=== PATIENT | female | born 1960 | race African-American/Black ===

== ENCOUNTER 2023-03-21 19:41 | Emergency (ER) | payer OTHER, SELFPAY ==
[2023-03-21] VITALS (7 sets, daily range): BP systolic 154–163; BP diastolic 98–100; PULSE 52–73; RESP 15–22; TEMP 36.7; O2SAT 93–97; BMI 25.8
--- NOTE | 2023-03-21 20:03 | PC.NURSE ---
Patient reports she came to ER because it was too hot at the homeless senior living. Im trying to get into a snf because I'm tired of the homeless senior living. patient reports weakness but is able to get out of bed on own and ambulate to bathroom with no assist. Patient brought food to ER with her via ems
--- NOTE | 2023-03-21 20:14 | ECG_ITS ---
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
--- NOTE | 2023-03-21 20:17 | XR_ITS ---
[address] [address] Patient Name: RADHA WARE MRN: [id number] date: 1960 Sex: F Assigned Patient Location: ED.MAIN Current Patient Location: ER Accession/Order Number: [id number] Exam Date: 03/21/2023 20:25 Report Date: 03/21/2023 21:00 At the request of: RUBA MARKER Procedure: XR chest 1V EXAMINATION: XR chest 1V HISTORY: Weakness COMPARISON: Chest x-ray 01/26/2023 TECHNIQUE: Portable chest FINDINGS: The lung parenchyma is free of consolidation or infiltrate. No pneumothorax or pleural effusion. The cardiac, mediastinal and hilar contours are normal. The visualized osseous structures exhibit no gross abnormality. Status post open reduction internal fixation of the right distal clavicle IMPRESSION: No acute cardiopulmonary abnormality. Electronically authenticated by: HIRAM LAZARO Date: 03/21/2023 21:00
--- NOTE | 2023-03-21 20:18 | ED.GENADUL1 ---
HPI - General Adult General Chief complaint: Weakness Stated complaint: general weakness Time Seen by Provider: 03/21/23 20:10 Source: patient Mode of arrival: ambulance Limitations: no limitations History of Present Illness HPI narrative: 63-year-old female with a history of coronary artery disease status post myocardial infarction with one coronary stent and rheumatoid arthritis presents for evaluation of generalized weakness. The patient states that she wants to be admitted to a skilled nursing. She is currently in a homeless correction after losing her apartment due to financial reasons. She has 2 children one in [facility] and one in [place]. She states they cannot help her. She states she feels very fatigued and has generalized weakness. She denies any fevers, chills, chest pain, abdominal pain. She states she has a family physician and has care source. She has not been evaluated by a executive secretary social welfare for skilled nursing placement. She states that they homeless correction as hot without air conditioning and she does not like staying there. She is well kempt. She is well dressed. She appears well fed and has food and Coke with her. Related Data Allergies Allergy/AdvReac Type Severity Reaction Status Date / Time lisinopril Allergy Severe Cough Verified 03/21/23 19:45 trazodone Allergy Intermediate breath Verified 03/21/23 19:45 Review of Systems ROS Status of ROS 10 or more systems reviewed and unremarkable except as noted in history and below [facility] Social History Smoking status: Current every day smoker Exam Narrative Exam Narrative: Constitutional: Well-appearing -Scottish female resting, when the stretcher, she is ambulatory to the bathroom without difficulty, no distress noted Vital signs: Patient is afebrile with a normal pulse, she is actually bradycardic with pulse of 54, blood pressure is mildly elevated 1 5400, she is not hypoxic with pulse ox of 96 percent on room air HEENT: Normal cephalic atraumatic, because membranes are moist and pink, pupils are equal and reactive Neck: Supple, no meningeal signs Chest: Lungs are clear with good air entry, there is no wheezing rhonchi or rales appreciated CVS: Regular rate and rhythm, pulses are brisk and equal bilaterally Abd: Soft, nondistended nontender no rebound guarding rigidity, no flank pain Ext: Ulnar deviation consistent with rheumatoid arthritis, otherwise normal exam with no calf swelling or tenderness Neuro: no focal deficits, Who was working with a steady gait, speech is clear Psych: normal exam, depressed affect, denies thoughts of self harm Constitutional Vital Signs - 24 hr 03/21/23 19:45 03/21/23 19:43 03/21/23 20:10 Temperature 98.1 F Pulse Rate 73 Pulse Rate [Monitor] 54 L Respiratory Rate 17 17 Blood Pressure 154/100 H 163/98 H Blood Pressure [Right Arm] 154/100 H Pulse Oximetry 96 Oxygen Delivery Method Room Air 03/21/23 20:10 03/21/23 20:34 03/21/23 20:40 Temperature Pulse Rate 56 L 60 Pulse Rate [Monitor] Respiratory Rate 22 15 Blood Pressure 163/98 H Blood Pressure [Right Arm] Pulse Oximetry 96 Oxygen Delivery Method 03/21/23 20:50 03/21/23 21:00 Temperature Pulse Rate 55 L 52 L Pulse Rate [Monitor] Respiratory Rate 17 17 Blood Pressure Blood Pressure [Right Arm] Pulse Oximetry 93 L 97 Oxygen Delivery Method Course Vital Signs Vital signs: Vital Signs Blood Pressure 154/100 H 03/21/23 19:43 Temperature 98.1 F 03/21/23 19:45 Pulse Rate 52 L 03/21/23 21:00 Respiratory Rate 17 03/21/23 21:00 Blood Pressure 163/98 H 03/21/23 20:10 Pulse Oximetry 97 03/21/23 21:00 Oxygen Delivery Method Room Air 03/21/23 19:45 Medical Decision Making MDM Narrative Medical decision making narrative: This 63-year-old female presents for evaluation of fatigue and generalized weakness. She admits that she is currently living in a homeless correction and requests to be admitted for skilled nursing placement. She has no specific pain complaints. She is well-groomed and well-dressed. She has food and drinks with her. She does get Social Security. She states that approximately one month ago she became homeless when she did not longer afford her apartment. She has children that live in [facility] and also [place]. She states that they are adults and they can't help her. She does have a history of coronary artery disease and has a coronary stent. She denies any chest pain, shortness of breath, she denies any dizziness or diaphoresis. She has not had a fever. She denies any abdominal pain. She does have a history of rheumatoid arthritis and uses a Rolator walker. Her physical exam is benign. There was no sign of infection or other abnormality noted. I did explain to her that I would have to find a reason to admit her because there are strict criteria for admission and also for skilled nursing placement. An EKG was a sinus rhythm/sinus bradycardia at 55 beats for minute with a normal axis and nonspecific ST changes. She did not require any IV fluids or pain medications. Routine labs including CBC, comprehensive metabolic profile, troponin, thyroid-stimulating hormone urinalysis and checks x-ray were ordered. The only abnormality that was found was that her potassium is 2.7. The remainder of her labs including troponin, urinalysis and thyroid-stimulating hormone are normal. Chest x-ray is read by radiology as normal. The patient admits that she is on a diuretic, she thinks it is hydrochlorothiazide. This is likely the etiology of her low potassium. She was given oral potassium supplementation emergency department and will be discharged home with prescription for Micro-K 20 to use twice a day for the next week. She was given the phone number for the executive secretary social welfare at the hospital who may be able to help her with future plans and/or skilled nursing placement.She was given a ride by security back to the homeless correction where she is currently living. Lab Data Labs: Lab Results 03/21/23 03/21/23 03/21/23 Range/Units 18:35 20:25 20:28 WBC 8.2 (4.0-11.0) 10^3/uL RBC 4.96 (4.20-5.40) 10^6/uL Hgb 13.7 (12.0-16.0) g/dL Hct 41.2 (36.0-48.0) % MCV 83.1 (81.0-99.0) fL MCH 27.6 (26.7-34.0) pg MCHC 33.3 (29.9-35.2) g/dL RDW 15.6 H (11.0-15.0) % Plt Count 367 (150-450) 10^3/uL MPV 9.6 (9.5-13.5) fL Neut % (Auto) 48.7 (43.0-75.0) % Lymph % (Auto) 37.8 (20.5-60.0) % [place] % (Auto) 7.7 (1.7-12.0) % Eos % (Auto) 3.9 (0.9-7.0) % Baso % (Auto) 1.5 (0.2-2.0) % Neut # (Auto) 4.0 (1.4-6.5) 10^3/uL Lymph # (Auto) 3.1 (1.2-3.8) 10^3/uL [place] # (Auto) 0.6 (0.3-0.8) 10^3/uL Eos # (Auto) 0.3 (0.0-0.7) 10^3/uL Baso # (Auto) 0.1 (0.0-0.1) 10^3/uL Abs Immat Gran (auto) 0.03 (0.00-0.03) 10^3/uL Imm/Tot Granulo (auto) 0.4 (0.0-0.5) % Sodium 139 (136-145) mmol/L Potassium 2.7 L* (3.5-5.1) mmol/L Chloride 104 (98-107) mmol/L Carbon Dioxide 19.6 L (21.0-32.0) mmol/L Anion Gap 18.1 BUN 8.0 (7.0-18.0) mg/dL Creatinine 0.94 (0.55-1.02) mg/dL Est GFR ( Amer) >60 (>=60) Est GFR (Non-Af Amer) >60 (>=60) BUN/Creatinine Ratio 8.5 Glucose 117 H (74-106) mg/dL Calcium 9.1 (8.5-10.1) mg/dL Total Bilirubin 0.2 (0.2-1.0) mg/dL AST 10 L (15-37) U/L ALT 18 (14-59) U/L Alkaline Phosphatase 57 (46-116) U/L Troponin I High Sens 9.2 (4.0-51.3) pg/mL Total Protein 7.9 (6.4-8.2) g/dL Albumin 4.0 (3.4-5.0) g/dL Globulin 3.9 g/dL Albumin/Globulin Ratio 1.0 TSH 1.348 (0.358-3.740) uIU/mL Urine Color Yellow (YELLOW) Urine Clarity Clear (CLEAR) Urine pH 6.5 (5.0-9.0) Ur Specific [place] 1.015 (1.005-1.025) Urine Protein 100 A (NEG/TRACE) mg/dL Urine Glucose (UA) Negative (NEGATIVE) mg/dL Urine Ketones Negative (NEGATIVE) mg/dL Urine Occult Blood Negative (NEGATIVE) Urine Nitrite Negative (NEGATIVE) Urine Bilirubin Negative (NEGATIVE) Urine Urobilinogen 0.2 (0.2-1.0) EU/dL Ur Leukocyte Esterase Negative (NEGATIVE) Urine RBC 0-2 (0-2) #/HPF Urine WBC 2-5 A (NONE SEEN) #/HPF Ur Squamous Epith Cells Many A (NONE/RARE) #/LPF Urine Crystals None seen (None Seen) #/HPF Urine Bacteria None seen (NONE SEEN) #/HPF Urine Casts None seen (NONE SEEN) #/LPF Urine Mucus None seen (NONE SEEN) Ur Culture Indicated? No ECG Data Attestation: I personally reviewed and interpreted this ECG as follows: (Sinus cardia at 55 beats for minute, normal axis, nonspecific ST changes with flattening of T waves in leads 23 aVF and V5 V6, no acute ST segment elevation) Discharge Plan Discharge Chief Complaint: Weakness Clinical Impression: Homeless single person, Acute hypokalemia Patient Disposition: Home, Self-Care Time of Disposition Decision: 21:26 Condition: Good Instructions: Hypokalemia (ED) Additional Instructions: Call [facility], tomorrow to discuss your current situation and request for placement in an extended care facility The hospital phone number is [phone] Take the potassium as prescribed Stand Alone Forms: Portal Instructions Referrals: Physician,Non-Staff, MD [Primary Care Provider] - 1 week
[2023-03-21 20:47] LABS: Basophils Absolute Auto 0.1 10^3/uL (0.0-0.1); Basophils Percent Auto 1.5 % (0.2-2.0); Eosinophils Absolute Auto 0.3 10^3/uL (0.0-0.7); Eosinophils Percent Auto 3.9 % (0.9-7.0); Hematocrit 41.2 % (36.0-48.0); Hemoglobin 13.7 g/dL (12.0-16.0); Immature Granulocytes Abs Auto 0.03 10^3/uL (0.00-0.03); Immature Granulocytes Pct Auto 0.4 % (0.0-0.5); Lymphocytes Absolute Auto 3.1 10^3/uL (1.2-3.8); Lymphocytes Percent Auto 37.8 % (20.5-60.0); Mean Corpuscular HGB Conc 33.3 g/dL (29.9-35.2); Mean Corpuscular Hemoglobin 27.6 pg (26.7-34.0); Mean Corpuscular Volume 83.1 fL (81.0-99.0); Mean Platelet Volume 9.6 fL (9.5-13.5); Monocytes Absolute Auto 0.6 10^3/uL (0.3-0.8); Monocytes Percent Auto 7.7 % (1.7-12.0); Neutrophils Percent Auto 48.7 % (43.0-75.0); Platelet Count 367 10^3/uL (150-450); Red Blood Count 4.96 10^6/uL (4.20-5.40); Red Cell Distribution Width 15.6 % (11.0-15.0); White Blood Count 8.2 10^3/uL (4.0-11.0)
[2023-03-21 20:48] LABS: Bilirubin Urine NEGATIVE (NEGATIVE); Blood Urine NEGATIVE (NEGATIVE); Clarity Urine CLEAR (CLEAR); Color Urine YELLOW (YELLOW); Glucose Urine UA NEGATIVE (NEGATIVE); Ketones Urine NEGATIVE (NEGATIVE); Leukocyte Esterase Urine NEGATIVE (NEGATIVE); Nitrite Urine NEGATIVE (NEGATIVE); Protein Urine 100 mg/dL (NEG/TRACE); Specific Gravity Urine 1.015 (1.005-1.025); Urobilinogen Urine 0.2 EU/dL (0.2-1.0); pH Urine 6.5 (5.0-9.0)
[2023-03-21 20:49] LABS: Urine Microscopic Indicated YES
[2023-03-21 20:58] LABS: Bacteria Urine NONE SEEN #/HPF (NONE SEEN); Cast Seen? NONE SEEN #/LPF (NONE SEEN); Crystals Seen? None Seen #/HPF (None Seen); Mucus Urine NONE SEEN (NONE SEEN); RBC Urine 0-2 #/HPF (0-2); Squamous Epithelial Cell Urine MANY #/LPF (NONE/RARE); Urine Culture Indicated NO
[2023-03-21 21:12] LABS: Alanine Aminotransferase 18 U/L (14-59); Alkaline Phosphatase 57 U/L (46-116); Anion Gap 18.1; Aspartate Amino Transferase 10 U/L (15-37); BUN Creatinine Ratio 8.5; Bilirubin Total 0.2 mg/dL (0.2-1.0); Calcium 9.1 mg/dL (8.5-10.1); Carbon Dioxide 19.6 mmol/L (21.0-32.0); Chloride 104 mmol/L (98-107); Estimated GFR (African America >60 (>=60); Estimated GFR (Non-African Ame >60 (>=60); Globulin 3.9 g/dL; Glucose 117 mg/dL (74-106); Sodium 139 mmol/L (136-145); Thyroid Stimulating Hormone 1.348 uIU/mL (0.358-3.740); Total Protein 7.9 g/dL (6.4-8.2); Troponin I High Sensitivity 9.2 pg/mL (4.0-51.3)
[2023-03-21 21:13] LABS: Potassium 2.7 mmol/L (3.5-5.1)
[2023-03-21] MEDS: POTASSIUM CHLORIDE 10 MEQ ER TABLET 20 MEQ PO (21:41)
== END 2023-03-21 22:25 | disposition home or self-care (01) ==
PROVIDERS: Emergency Provider Emergency Medicine
DX: E87.6 Hypokalemia (principal); Z59.01 Sheltered homelessness; I25.10 Atherosclerotic heart disease of native coronary artery without angina pectoris; I25.2 Old myocardial infarction; Z95.5 Presence of coronary angioplasty implant and graft; M06.9 Rheumatoid arthritis, unspecified; Z79.899 Other long term (current) drug therapy; F17.210 Nicotine dependence, cigarettes, uncomplicated
CPT/HCPCS: 36415; 71045; 80053; 81003; 81015; 84443; 84484; 85025; 93005; 99285

== ENCOUNTER 2023-04-28 07:40 | Emergency (ER) | payer OTHER, SELFPAY ==
[2023-04-28] VITALS (23 sets, daily range): BP systolic 168–177; BP diastolic 82–107; PULSE 50–98; RESP 12–25; TEMP 36.8; O2SAT 92–98; BMI 31.9
--- NOTE | 2023-04-28 07:53 | ED_ITS ---
HPI - General Adult General Chief complaint: Weakness Stated complaint: GENERAL ILL FEELING Time Seen by Provider: 04/28/23 07:53 History of Present Illness HPI narrative: Patient presents to the emergency department via EMS with complaint of weakness. Patient states and a homeless penitent[facility] in the area and she states that they were given her heart time of sick people or angry and yelling at her daycare as if they don't want her to stay there so she left 2 days ago and has been sleeping on the street. She has not had anything to eat in the last 2 days. She states she's been feeling weak. She has a history of coronary artery disease, and rheumatoid arthritis. Her complaint is that she is hungry and she feels weak. She denies any headache, sore throat, cough, upper respiratory infection symptoms. She denies any chest pain, or shortness of breath. She denies any fever, or chills. She denies any nausea, vomiting, diarrhea, constipation, or abdominal pain. She denies any flank pain, hematuria, dysuria. She denies any trauma. She states she has 2 daughters that live in [place]. she states she cannot get any help from them. Related Data Allergies Allergy/AdvReac Type Severity Reaction Status Date / Time lisinopril Allergy Severe Cough Verified 03/21/23 19:45 trazodone Allergy Intermediate breath Verified 03/21/23 19:45 Review of Systems ROS Status of ROS 10 or more systems reviewed and unremarkable except as noted in history and below [facility] Social History Smoking status: Current every day smoker Exam Narrative Exam Narrative: Nurses notes and vital signs reviewed and patient is not hypoxic. General: Nontoxic, Well-appearing, good Hygiene and in no apparent distress. Skin: Warm, dry, no pallor noted. No Rash Head: Normocephalic, atraumatic. Neck: Supple, non-tender. Eye: Pupils are equal, round and EOMI. No scleral icterus. Ears, Nose, Mouth, and Throat: TM clear, no posterior oropharynx erythema or nasal mucosal hypertrophy, uvula is mid-line Oral mucosa is moist Cardiovascular: Regular Rate and Rhythm without murmur, gallop or rub. Respiratory: No accessory muscle use or respiratory distress. Lungs are clear to auscultation, no wheezing, rales or rhonchi Chest Wall: no tenderness Back: No midline thoracic or lumbar vertebral tenderness. No CVA tenderness Musculoskeletal: Bilateral hand ulnar deviation deformities. normal ROM, no calf or popliteal tenderness, no lower extremity edema/swelling GI: Abdomen is soft, non-distended. Normal bowel sounds. No masses appreciated. No tenderness to palpation. No rebound, guarding, or rigidity noted. Neurological: A&O x4. No cranial nerve dysfunction observed. No truncal ataxia. Moves all extremities. Sensation intact. Psychiatric: Cooperative and interactive. Normal mood and affect. Constitutional Vital Signs, click to edit/add: Last Vital Signs Temp 98.3 F 04/28/23 12:05 Pulse 55 L 04/28/23 14:00 Resp 20 04/28/23 14:00 BP 168/82 H 04/28/23 13:57 Pulse Ox 96 04/28/23 12:05 O2 Del Method Room Air 04/28/23 08:02 Course Vital Signs Vital signs: Vital Signs Blood Pressure 177/107 H 04/28/23 07:52 Temperature 98.3 F 04/28/23 12:05 Pulse Rate 55 L 04/28/23 14:00 Respiratory Rate 20 04/28/23 14:00 Blood Pressure 168/82 H 04/28/23 13:57 Pulse Oximetry 96 04/28/23 12:05 Oxygen Delivery Method Room Air 04/28/23 08:02 Medical Decision Making MDM Narrative Medical decision making narrative: Patient's last month had a low potassium. Labs were checked and her potassium is 2.7. She was given 60 mEq by mouth. She was given 2 meals. Patient is awake alert oriented ?4. Patient stated she was anxious and has been having suicide ideation. Mental health was consulted. The patient has been accepted to [facility] pending her potassium. Level has been rechecked. Patient's potassium is 3.6 and reevaluation. She remained stable. EMS arrived to take the patient to the mental health facility. Patient has been medically cleared for inpatient psychiatric admission. Lab Data Lab results reviewed: Yes I reviewed the patient's lab results Labs: Lab Results 04/28/23 04/28/23 04/28/23 Range/Units 07:50 08:15 12:30 WBC 7.6 (4.0-11.0) 10^3/uL RBC 4.75 (4.20-5.40) 10^6/uL Hgb 13.3 (12.0-16.0) g/dL Hct 38.5 (36.0-48.0) % MCV 81.1 (81.0-99.0) fL MCH 28.0 (26.7-34.0) pg MCHC 34.5 (29.9-35.2) g/dL RDW 14.9 (11.0-15.0) % Plt Count 275 (150-450) 10^3/uL MPV 9.7 (9.5-13.5) fL Neut % (Auto) 54.6 (43.0-75.0) % Lymph % (Auto) 30.8 (20.5-60.0) % [place] % (Auto) 8.1 (1.7-12.0) % Eos % (Auto) 4.9 (0.9-7.0) % Baso % (Auto) 1.2 (0.2-2.0) % Neut # (Auto) 4.1 (1.4-6.5) 10^3/uL Lymph # (Auto) 2.3 (1.2-3.8) 10^3/uL [place] # (Auto) 0.6 (0.3-0.8) 10^3/uL Eos # (Auto) 0.4 (0.0-0.7) 10^3/uL Baso # (Auto) 0.1 (0.0-0.1) 10^3/uL Abs Immat Gran (auto) 0.03 (0.00-0.03) 10^3/uL Imm/Tot Granulo (auto) 0.4 (0.0-0.5) % Sodium 135 L (136-145) mmol/L Potassium 2.7 L* 2.8 L* (3.5-5.1) mmol/L Chloride 100 (98-107) mmol/L Carbon Dioxide 19.4 L (21.0-32.0) mmol/L Anion Gap 18.3 BUN 8.0 (7.0-18.0) mg/dL Creatinine 0.57 (0.55-1.02) mg/dL Est GFR ( Amer) >60 (>=60) Est GFR (Non-Af Amer) >60 (>=60) BUN/Creatinine Ratio 14.0 Glucose 115 H (74-106) mg/dL Calcium 8.5 (8.5-10.1) mg/dL Magnesium 1.7 L (1.8-2.4) mg/dL Total Bilirubin 0.3 (0.2-1.0) mg/dL AST 15 (15-37) U/L ALT 15 (14-59) U/L Alkaline Phosphatase 61 (46-116) U/L Troponin I High Sens 20.6 (4.0-51.3) pg/mL NT-Pro-B Natriuret Pep 64.0 (<=900.0) pg/mL Total Protein 7.4 (6.4-8.2) g/dL Albumin 3.8 (3.4-5.0) g/dL Globulin 3.6 g/dL Albumin/Globulin Ratio 1.1 Urine Color Lt. yellow (YELLOW) Urine Clarity Clear (CLEAR) Urine pH 6.0 (5.0-9.0) Ur Specific [place] 1.020 (1.005-1.025) Urine Protein Negative (NEG/TRACE) mg/dL Urine Glucose (UA) Negative (NEGATIVE) mg/dL Urine Ketones Negative (NEGATIVE) mg/dL Urine Occult Blood Negative (NEGATIVE) Urine Nitrite Negative (NEGATIVE) Urine Bilirubin Negative (NEGATIVE) Urine Urobilinogen 0.2 (0.2-1.0) EU/dL Ur Leukocyte Esterase Negative (NEGATIVE) Salicylates 6.9 (<=19.9) mg/dL Urine Opiates Screen Negative (NEGATIVE) Ur Buprenorphine Scrn Negative (NEGATIVE) Ur Oxycodone Screen Negative (NEGATIVE) Urine Methadone Screen Negative (NEGATIVE) Ur Propoxyphene Screen Negative (NEGATIVE) Acetaminophen <2.0 L (10.0-30.0) ug/mL Ur Barbiturates Screen Negative (NEGATIVE) U Tricyclic Antidepress Negative (NEGATIVE) Ur Phencyclidine Scrn Negative (NEGATIVE) Ur Amphetamines Screen Negative (NEGATIVE) U Methamphetamines Scrn Negative (NEGATIVE) U Benzodiazepines Scrn Negative (NEGATIVE) Urine Cocaine Screen Negative (NEGATIVE) U Cannabinoids Screen Positive A (NEGATIVE) Ethanol Quant <3 mg/dL 04/28/23 Range/Units 14:57 WBC (4.0-11.0) 10^3/uL RBC (4.20-5.40) 10^6/uL Hgb (12.0-16.0) g/dL Hct (36.0-48.0) % MCV (81.0-99.0) fL MCH (26.7-34.0) pg MCHC (29.9-35.2) g/dL RDW (11.0-15.0) % Plt Count (150-450) 10^3/uL MPV (9.5-13.5) fL Neut % (Auto) (43.0-75.0) % Lymph % (Auto) (20.5-60.0) % [place] % (Auto) (1.7-12.0) % Eos % (Auto) (0.9-7.0) % Baso % (Auto) (0.2-2.0) % Neut # (Auto) (1.4-6.5) 10^3/uL Lymph # (Auto) (1.2-3.8) 10^3/uL [place] # (Auto) (0.3-0.8) 10^3/uL Eos # (Auto) (0.0-0.7) 10^3/uL Baso # (Auto) (0.0-0.1) 10^3/uL Abs Immat Gran (auto) (0.00-0.03) 10^3/uL Imm/Tot Granulo (auto) (0.0-0.5) % Sodium (136-145) mmol/L Potassium 3.6 (3.5-5.1) mmol/L Chloride (98-107) mmol/L Carbon Dioxide (21.0-32.0) mmol/L Anion Gap BUN (7.0-18.0) mg/dL Creatinine (0.55-1.02) mg/dL Est GFR ( Amer) (>=60) Est GFR (Non-Af Amer) (>=60) BUN/Creatinine Ratio Glucose (74-106) mg/dL Calcium (8.5-10.1) mg/dL Magnesium (1.8-2.4) mg/dL Total Bilirubin (0.2-1.0) mg/dL AST (15-37) U/L ALT (14-59) U/L Alkaline Phosphatase (46-116) U/L Troponin I High Sens (4.0-51.3) pg/mL NT-Pro-B Natriuret Pep (<=900.0) pg/mL Total Protein (6.4-8.2) g/dL Albumin (3.4-5.0) g/dL Globulin g/dL Albumin/Globulin Ratio Urine Color (YELLOW) Urine Clarity (CLEAR) Urine pH (5.0-9.0) Ur Specific [place] (1.005-1.025) Urine Protein (NEG/TRACE) mg/dL Urine Glucose (UA) (NEGATIVE) mg/dL Urine Ketones (NEGATIVE) mg/dL Urine Occult Blood (NEGATIVE) Urine Nitrite (NEGATIVE) Urine Bilirubin (NEGATIVE) Urine Urobilinogen (0.2-1.0) EU/dL Ur Leukocyte Esterase (NEGATIVE) Salicylates (<=19.9) mg/dL Urine Opiates Screen (NEGATIVE) Ur Buprenorphine Scrn (NEGATIVE) Ur Oxycodone Screen (NEGATIVE) Urine Methadone Screen (NEGATIVE) Ur Propoxyphene Screen (NEGATIVE) Acetaminophen (10.0-30.0) ug/mL Ur Barbiturates Screen (NEGATIVE) U Tricyclic Antidepress (NEGATIVE) Ur Phencyclidine Scrn (NEGATIVE) Ur Amphetamines Screen (NEGATIVE) U Methamphetamines Scrn (NEGATIVE) U Benzodiazepines Scrn (NEGATIVE) Urine Cocaine Screen (NEGATIVE) U Cannabinoids Screen (NEGATIVE) Ethanol Quant mg/dL ECG Data Attestation: I personally reviewed and interpreted this ECG as follows: Discharge Plan Discharge Chief Complaint: Weakness Clinical Impression: Suicide ideation, Acute hypokalemia Patient Disposition: [facility] Time of Disposition Decision: 15:44 Discharge location: [facility] psychiatric facility Condition: Good Mode of Transportation: Mental Health Car Discharge Date/Time: 04/28/23 16:47
--- NOTE | 2023-04-28 07:57 | ECG_ITS ---
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
--- NOTE | 2023-04-28 07:57 | XR_ITS ---
The [address] [address] Patient Name: RADHA WARE MRN: [id number] date: 1960 Sex: F Assigned Patient Location: ED.MAIN Current Patient Location: ER Accession/Order Number: [id number] Exam Date: 04/28/2023 08:15 Report Date: 04/28/2023 09:05 At the request of: SHADY IBRAHIM Procedure: XR chest 1V EXAM: XR chest 1V HISTORY: weakness COMPARISON: 03/21/2023. TECHNIQUE: Chest X-ray, 1 view. FINDINGS: Support devices: None. Lungs/pleura: No consolidation, effusion, or pneumothorax. Heart and mediastinum: Stable contours compared to prior examination. Bones: No acute abnormality identified. Right clavicle fixation hardware. XR/XR chest 1V IMPRESSION: No active disease. No change. Electronically authenticated by: KYLAH FRANK Date: 04/28/2023 09:05
[2023-04-28 08:03] LABS: Bilirubin Urine NEGATIVE (NEGATIVE); Blood Urine NEGATIVE (NEGATIVE); Clarity Urine CLEAR (CLEAR); Color Urine LT. YELLOW (YELLOW); Glucose Urine UA NEGATIVE (NEGATIVE); Ketones Urine NEGATIVE (NEGATIVE); Leukocyte Esterase Urine NEGATIVE (NEGATIVE); Nitrite Urine NEGATIVE (NEGATIVE); Protein Urine NEGATIVE (NEG/TRACE); Urobilinogen Urine 0.2 EU/dL (0.2-1.0)
[2023-04-28 08:05] LABS: Urine Microscopic Indicated NO
[2023-04-28 08:26] LABS: Basophils Absolute Auto 0.1 10^3/uL (0.0-0.1); Basophils Percent Auto 1.2 % (0.2-2.0); Eosinophils Absolute Auto 0.4 10^3/uL (0.0-0.7); Eosinophils Percent Auto 4.9 % (0.9-7.0); Hematocrit 38.5 % (36.0-48.0); Hemoglobin 13.3 g/dL (12.0-16.0); Immature Granulocytes Abs Auto 0.03 10^3/uL (0.00-0.03); Immature Granulocytes Pct Auto 0.4 % (0.0-0.5); Lymphocytes Absolute Auto 2.3 10^3/uL (1.2-3.8); Lymphocytes Percent Auto 30.8 % (20.5-60.0); Mean Corpuscular HGB Conc 34.5 g/dL (29.9-35.2); Mean Corpuscular Volume 81.1 fL (81.0-99.0); Mean Platelet Volume 9.7 fL (9.5-13.5); Monocytes Absolute Auto 0.6 10^3/uL (0.3-0.8); Monocytes Percent Auto 8.1 % (1.7-12.0); Neutrophils Absolute Auto 4.1 10^3/uL (1.4-6.5); Neutrophils Percent Auto 54.6 % (43.0-75.0); Platelet Count 275 10^3/uL (150-450); Red Blood Count 4.75 10^6/uL (4.20-5.40); Red Cell Distribution Width 14.9 % (11.0-15.0); White Blood Count 7.6 10^3/uL (4.0-11.0)
[2023-04-28 08:48] LABS: Alanine Aminotransferase 15 U/L (14-59); Albumin Globulin Ratio 1.1; Albumin Level 3.8 g/dL (3.4-5.0); Alkaline Phosphatase 61 U/L (46-116); Anion Gap 18.3; Aspartate Amino Transferase 15 U/L (15-37); Bilirubin Total 0.3 mg/dL (0.2-1.0); Calcium 8.5 mg/dL (8.5-10.1); Carbon Dioxide 19.4 mmol/L (21.0-32.0); Chloride 100 mmol/L (98-107); Estimated GFR (African America >60 (>=60); Estimated GFR (Non-African Ame >60 (>=60); Globulin 3.6 g/dL; Glucose 115 mg/dL (74-106); Sodium 135 mmol/L (136-145); Total Protein 7.4 g/dL (6.4-8.2); Troponin I High Sensitivity 20.6 pg/mL (4.0-51.3)
[2023-04-28 08:49] LABS: Potassium 2.7 mmol/L (3.5-5.1)
[2023-04-28] MEDS: POTASSIUM CHLORIDE 10 MEQ ER TABLET 60 MEQ PO (09:04)
--- NOTE | 2023-04-28 09:39 | PC.NURSE ---
In to assess patient, patient asking to speak with the physician. Pt requesting nicotine patch. Physician notified. Patient refuses to speak to this RN about concerns. Attempted to call patients emergency contact in chart, phone is disconnected. Unable to reach family member.
[2023-04-28] MEDS: NICOTINE 21 MG PATCH.TD24 TD (09:59)
[2023-04-28 10:08] LABS: Ethanol <3 mg/dL; Salicylate 6.9 mg/dL (<=19.9)
[2023-04-28 10:10] LABS: Acetaminophen <2.0 ug/mL (10.0-30.0)
[2023-04-28 11:11] LABS: Amphetamine Screen Urine NEGATIVE (NEGATIVE); Benzodiazepines Screen Urine NEGATIVE (NEGATIVE); Cannabinoid Screen Urine POSITIVE (NEGATIVE); Cocaine Screen Urine NEGATIVE (NEGATIVE); Methamphetamines Screen Urine NEGATIVE (NEGATIVE); Opiate Screen Urine NEGATIVE (NEGATIVE); Phencyclidine Screen Urine NEGATIVE (NEGATIVE); Tricyclic Antidepressant Urine NEGATIVE (NEGATIVE)
[2023-04-28 11:12] LABS: Barbiturates Screen Urine NEGATIVE (NEGATIVE); Buprenorphine Screen Urine NEGATIVE (NEGATIVE); Methadone Screen Urine NEGATIVE (NEGATIVE); Oxycodone Screen Urine NEGATIVE (NEGATIVE)
--- NOTE | 2023-04-28 11:45 | PC.NURSE ---
Ordered pt a meal tray for lunch and notified dr of patient's request for chronic pain of motrin
[2023-04-28] MEDS: IBUPROFEN 400 MG TABLET 800 MG PO (12:12)
[2023-04-28 13:00] LABS: Potassium 2.8 mmol/L (3.5-5.1)
[2023-04-28] MEDS: POTASSIUM BICARBONATE/CIT 25 MEQ TABLET EFF 50 MEQ PO (13:18)
[2023-04-28 13:33] LABS: Magnesium 1.7 mg/dL (1.8-2.4)
[2023-04-28] MEDS: POTASSIUM CHLORIDE 10 MEQ ER TABLET 20 MEQ PO (14:05)
[2023-04-28] MEDS: MAGNESIUM HYDROXIDE 2,400 MG/10 ML ORAL.SUSP 2400 MG PO (14:05)
[2023-04-28] MEDS: DIPHENHYDRAMINE HCL 50 MG/ML (1ML) VIAL IM (14:15)
[2023-04-28 15:10] LABS: Potassium 3.6 mmol/L (3.5-5.1)
--- NOTE | 2023-04-28 16:46 | PC.NURSE ---
report complete by DR DE LOS SANTOS to [facility] prior to transport, pt belongings left with pt and [facility] security took pt to [facility] car for transpot
== END 2023-04-28 16:47 ==
PROVIDERS: Emergency Provider Emergency Medicine
DX: E87.6 Hypokalemia (principal); R45.851 Suicidal ideations; Z59.02 Unsheltered homelessness; I25.10 Atherosclerotic heart disease of native coronary artery without angina pectoris; M06.9 Rheumatoid arthritis, unspecified; F17.210 Nicotine dependence, cigarettes, uncomplicated
CPT/HCPCS: 36415; 71045; 80053; 80179; 80307; 80320; 80329; 81003; 83735; 83880; 84132; 84484; 85025; 93005; 99285